=== PATIENT | male | born 1960 | race Caucasian/White ===

== ENCOUNTER 2017-05-30 16:39 | Outpatient (CLI) | payer MEDICARE ==
--- NOTE | 2017-05-30 17:04 | RAD ---
2 VIEWS OF CHEST: Date: 05/30/17 COMPARISON: None. HISTORY: Cough and congestion for 9 days. FINDINGS: Two views of the chest show a normal sized cardiomediastinal silhouette. The patient is status post sternotomy. There is a 2.2 cm mass projecting over the right lung. This appears to have a dense cent er and may represent a calcified granuloma. No other masses or areas of consolidation are seen. IMPRESSION: 1. No evidence of acute cardiopulmonary disease. 2. Mass-like area in the right lung may represent a granulomatous lesion. A CT of the chest with co ntrast is recommended for further evaluation. POS: [facility]
== END 2017-05-30 16:40 | disposition home or self-care (01) ==
LOC: NAV RAD 16:39
DX: J06.9 Acute upper respiratory infection, unspecified (principal); R05 Cough; F17.200 Nicotine dependence, unspecified, uncomplicated
CPT/HCPCS: 71020

== ENCOUNTER 2017-06-02 08:58 | Outpatient (CLI) | payer MEDICARE ==
[2017-06-02] MEDS ORDERED: Iopamidol 370 76% 100 ML VIAL ONE (09:00)
--- NOTE | 2017-06-02 11:01 | CT ---
CONTRACT ENHANCED CT CHEST: History: Abnormal chest x-ray. FINDINGS: Multiple calcified right hilar and subcarinal lymph nodes seen. There are numerous calcified and noncalcified lesions in the lung parenchyma measuring at least 10 i n number. This is compatible with prior granulomatous disease. Some noncalcified lesions are also se en. These are too small to characterize. Coronary artery calcifications also seen. IMPRESSION: Numerous pulmonary parenchymal lesions, the majority are calcified and are likely granulomas. Smalle r noncalcified parenchymal lesions also seen, too small to characterize further. POS: [facility]
== END 2017-06-02 08:59 | disposition home or self-care (01) ==
LOC: NAV CT 08:58
DX: R91.8 Other nonspecific abnormal finding of lung field (principal)
CPT/HCPCS: 71260

== ENCOUNTER 2018-02-02 09:06 | Outpatient (CLI) | payer MEDICARE ==
--- NOTE | 2018-02-02 12:31 | ULT ---
RENAL ULTRASOUND: HISTORY: Stage III renal disease. Real-time imaging of the right and left kidneys was performed. The right kidney measured 11.7 and th e left 12.3 cm in size. A 1.3 cm right renal cyst is identified. No solid mass or obstruction. Ravi dder is incompletely distended for this study. IMPRESSION: A 1.3 cm right renal cyst. POS: [facility]
== END 2018-02-02 09:07 | disposition home or self-care (01) ==
LOC: NAV ULT 09:06
PROVIDERS: ATTEND Internal Medicine Nephrology
DX: N18.4 Chronic kidney disease, stage 4 (severe) (principal); N28.1 Cyst of kidney, acquired
CPT/HCPCS: 76770

== ENCOUNTER 2018-07-06 15:04 | Emergency (ER) | payer MEDICARE ==
[2018-07-06 16:01] LABS: #Basophils 0.1 thou/uL (0.0-0.2); #Eosinphils 1.1 thou/uL (0.0-0.7); #Lymphocytes 2.8 thou/uL (1.20-3.40); #Monocytes 0.7 thou/uL (0.11-0.59); #Neutrophils 7.6 thou/uL (1.40-6.50); %Basophils 1.2 % (0.0-1.0); %Eosinophils 9.2 % (0.0-10.0); %Lymphocytes 22.4 % (21.0-51.0); %Monocytes 5.8 % (0.0-10.0); %Neutrophils 61.5 % (42.0-75.0); Hemoglobin 13.2 g/dL (14.0-18.0); Mean Corpuscular HGB CONC 32.7 g/dL (32.0-36.0); Mean Corpuscular Hemoglobin 31.1 pg (27.0-31.0); Mean Platelet Volume 7.3 fL (7.4-10.4); Platelet Count 245 thou/uL (130-400); RBC Distribution Width 11.8 % (11.5-14.5); Red Blood Cell (RBC) Count 4.24 mill/uL (4.70-6.10); White Blood Cell (WBC) Count 12.4 thou/uL (4.8-10.8)
[2018-07-06 16:15] LABS: ALT (SGPT) 17 U/L (8-55); AST (SGOT) 17 U/L (5-34); Albumin 3.1 g/dL (3.5-5.0); Alkaline Phosphatase 88 U/L (40-150); Anion Gap 17 mmol/L (10-20); BUN (Urea Nitrogen) 59 mg/dL (8.4-25.7); Bilirubin, Total 0.4 mg/dL (0.2-1.2); CK (CPK) 205 U/L (30-200); Calc. Creatinine Clearance 0 mL/min (70-130); Calcium 8.4 mg/dL (7.8-10.44); Carbon Dioxide 17 mmol/L (22-29); Chloride 113 mmol/L (98-107); Estimated GFR-MDRD 15; Globulin 3.1 g/dL (2.4-3.5); Glucose 140 mg/dL (70-105); Lipase 262 U/L (8-78); Potassium 4.9 mmol/L (3.5-5.1); Protein, Total 6.2 g/dL (6.0-8.3); Sodium 142 mmol/L (136-145)
[2018-07-06 16:19] LABS: CKMB 3.4 ng/mL (0-6.6); Troponin I 0.064 ng/mL (< 0.028)
--- NOTE | 2018-07-06 17:10 | RAD ---
CHEST ONE VIEW: 07/06/18 INDICATION: History of shortness of breath. COMPARISON: Prior exam dated 09/14/17. FINDINGS: There is stable moderate cardiomegaly. Midline sternotomy changes and post CABG change is similar kerry earing. No definite consolidation or pleural effusion is evident. Right lung calcified granulomata ar e stable. IMPRESSION: 1. No acute abnormality. 2. Stable cardiomegaly. 3. Stable post CABG change. 4. Stable findings or prior granulomatous disease. POS: [facility]
== END 2018-07-06 18:14 | disposition short-term general hospital (02) ==
LOC: NAV ERS 15:04
DX: I13.0 Hypertensive heart and chronic kidney disease with heart failure and stage 1 through stage 4 chronic kidney disease, or unspecified chronic kidney disease (principal); E11.22 Type 2 diabetes mellitus with diabetic chronic kidney disease; I50.9 Heart failure, unspecified; N18.4 Chronic kidney disease, stage 4 (severe); E78.5 Hyperlipidemia, unspecified; F41.9 Anxiety disorder, unspecified; F32.9 Major depressive disorder, single episode, unspecified; F17.210 Nicotine dependence, cigarettes, uncomplicated; I25.10 Atherosclerotic heart disease of native coronary artery without angina pectoris
CPT/HCPCS: 36415; 71045; 80053; 82550; 82553; 83690; 83880; 84484; 85025; 93005

== ENCOUNTER 2018-11-26 17:17 | Emergency (ER) | payer MEDICARE ==
[2018-11-26] MEDS ORDERED: Acetaminophen 500 MG TAB ONE (17:46)
[2018-11-26 17:50] LABS: #Basophils 0.1 thou/uL (0.0-0.2); #Eosinphils 0.7 thou/uL (0.0-0.7); #Lymphocytes 2.1 thou/uL (1.20-3.40); #Monocytes 0.6 thou/uL (0.11-0.59); #Neutrophils 8.5 thou/uL (1.40-6.50); %Basophils 0.7 % (0.0-1.0); %Eosinophils 5.7 % (0.0-10.0); %Lymphocytes 17.8 % (21.0-51.0); %Monocytes 4.9 % (0.0-10.0); %Neutrophils 70.8 % (42.0-75.0); Hemoglobin 11.9 g/dL (14.0-18.0); Mean Corpuscular HGB CONC 32.7 g/dL (32.0-36.0); Mean Corpuscular Volume 97.7 fL (78.0-98.0); Mean Platelet Volume 6.9 fL (7.4-10.4); Platelet Count 267 thou/uL (130-400); RBC Distribution Width 12.7 % (11.5-14.5); Red Blood Cell (RBC) Count 3.71 mill/uL (4.70-6.10)
[2018-11-26] MEDS ORDERED: Nitroglycerin 0.4 MG TAB (25 Tab Bottle) ONE (17:54)
[2018-11-26 18:15] LABS: ALT (SGPT) 29 U/L (8-55); AST (SGOT) 30 U/L (5-34); Albumin 3.7 g/dL (3.5-5.0); Alkaline Phosphatase 91 U/L (40-150); Anion Gap 19 mmol/L (10-20); BUN (Urea Nitrogen) 52 mg/dL (8.4-25.7); Bilirubin, Total 0.4 mg/dL (0.2-1.2); Calc. Creatinine Clearance 0 mL/min (70-130); Calcium 8.4 mg/dL (7.8-10.44); Carbon Dioxide 21 mmol/L (22-29); Chloride 100 mmol/L (98-107); Estimated GFR-MDRD 10; Globulin 2.8 g/dL (2.4-3.5); Glucose 350 mg/dL (70-105); Potassium 3.1 mmol/L (3.5-5.1); Protein, Total 6.5 g/dL (6.0-8.3); Sodium 137 mmol/L (136-145)
[2018-11-26] MEDS ORDERED: Lidocaine 1% w/Epinephrine 1:100K 30 ML VIAL ONE (18:25)
[2018-11-26] MEDS ORDERED: Potassium Chloride 20 MEQ TAB ONE (18:31)
--- NOTE | 2018-11-26 18:31 | RAD ---
PORTABLE SEMIUPRIGHT FRONTAL CHEST RADIOGRAPH: 11/26/2018 HISTORY: Syncope. Pain. COMPARISON: 10/26/2018 FINDINGS: Heart and mediastinal contours are stable. Midline sternotomy wires and mediastinal clips are noted. Stable pulmonary granulomatous change noted, as seen on a 06/02/[address], most prominent on th e right. No pneumothorax, pleural fluid, focal consolidation, or alveolar edema. IMPRESSION: No radiographic evidence of acute cardiopulmonary disease. POS: [facility]
[2018-11-26 18:33] LABS: CKMB 6.4 ng/mL (0-6.6)
--- NOTE | 2018-11-26 18:51 | CT ---
CT HEAD WITHOUT CONTRAST: 11/26/2018 HISTORY: Syncope. Pain. COMPARISON: 10/27/2018 TECHNIQUE: Axial CT imaging at 5 mm intervals, from the vertex through the skull base, with coronal and sagittal reformatted imaging. FINDINGS: The visualized paranasal sinuses and mastoid air cells are well aerated. There is atherosclerotic ca lcification of the cavernous carotid arteries. There is no intracranial hemorrhage midline shift, ma ss effect, or ventricular enlargement. IMPRESSION: No acute findings. POS: [facility]
[2018-11-26] MEDS ORDERED: Morphine 4 MG/ML VIAL ONE (18:56)
== END 2018-11-26 19:28 | disposition short-term general hospital (02) ==
LOC: NAV ERS 17:17
DX: R55 Syncope and collapse (principal); S01.01XA Laceration without foreign body of scalp, initial encounter; E11.65 Type 2 diabetes mellitus with hyperglycemia; R07.9 Chest pain, unspecified; I25.10 Atherosclerotic heart disease of native coronary artery without angina pectoris; I12.9 Hypertensive chronic kidney disease with stage 1 through stage 4 chronic kidney disease, or unspecified chronic kidney disease; N18.4 Chronic kidney disease, stage 4 (severe); E11.22 Type 2 diabetes mellitus with diabetic chronic kidney disease; E78.5 Hyperlipidemia, unspecified; F41.9 Anxiety disorder, unspecified; F32.9 Major depressive disorder, single episode, unspecified; Z79.82 Long term (current) use of aspirin; Z79.4 Long term (current) use of insulin; Z79.899 Other long term (current) drug therapy
CPT/HCPCS: 12001; 70450; 71045; 80053; 82553; 83880; 84484; 85025; 93005; 94760; 96374; J2001; J2270